=== PATIENT | female | born 1940 | race Caucasian/White ===

== ENCOUNTER 2016-12-01 17:25 | Emergency (ER) | payer MEDICARE, MEDICAID ==
[2016-12-01 18:02] LABS: BASO % 0.7 % (0-6); EOS % 2.8 % (0-6); GRAN % 55.6 % (47-80); HEMATOCRIT 40.9 % (35.0-47.0); HEMOGLOBIN 14.2 gm/dl (11.6-16.0); LYMPH % 31.2 % (16-45); MEAN CELL VOLUME 91.7 fl (81-97); MEAN CORPUSCULAR HEMOGLOBIN 31.8 pg (27-33); MEAN CORPUSCULAR HGB CONC 34.7 g/dl (32-36); MEAN PLATELET VOLUME 9.8 fl (7.4-10.4); MONO % 9.7 % (0-9); PLATELET COUNT 255 K/uL (130-400); RED BLOOD COUNT 4.46 M/uL (3.80-5.40); RED CELL DISTRIBUTION WIDTH 12.3 % (11.5-14.5); WHITE BLOOD COUNT W/O DIFF 7.1 K/uL (4.2-12.2)
[2016-12-01 18:14] LABS: ANION GAP 13.5 (7-16); BLOOD UREA NITROGEN 18 mg/dL (7-17); CARBON DIOXIDE 25.5 mmol/L (22-30); CREATININE 0.7 mg/dL (0.52-1.04); EST GLOMERULAR FILTRATION RATE > 60 ml/min; GLUCOSE,RANDOM 96 mg/dL (70-110)
--- NOTE | 2016-12-01 18:20 | Emergency Department Record ---
History of Present Illness - General Chief Complaint: Hypertension Stated Complaint: HYPERTENTION Time Seen by Provider: 12/01/16 18:15 Source: Patient Mode of Arrival: Ambulatory Limitations: No limitations - History of Present Illness Initial Comments: pt was home when a friend checked her bp and found it to be 155/105. they became alarmed at this high presure, they tell me, and called her drs office. her doctors office told her to go to the er. she said also she then became light headed and thought she was going to pass out. she said she has been in chronic pain for a year. she was also concerned that her hr was 61. MD Complaint: Dizziness, Lightheadedness Onset/Timin -: Hour(s) Timing: Gradual onset Description: Lightheadedness History of Same: Yes History of Trauma: No Improves With: Nothing - Caty Coma Scale Eye Response: (4) Open spontaneously Motor Response: (6) Obeys commands Verbal Response: (5) Oriented Caty Total: 15 - Symptoms of Stroke Onset of Symptoms Date: 12/01/16 Onset of Symptoms Time: 10:00 - Related Data Home Medications Medication Instructions Recorded Confirmed Last Taken Aspirin [Aspirin EC] 81 mg PO DAILY 08/27/14 12/01/16 1 Day Ago Metoprolol/Hydrochlorothiazide 1 each PO DAILY 08/27/14 12/01/16 1 Day Ago [Metoprolol-Hctz 100-50 mg Tab] Multivitamin [Multi-Vitamin Daily] 1 tab PO DAILY 08/27/14 12/01/16 1 Day Ago Naproxen [Naprosyn] 500 mg PO BID 09/25/16 12/01/16 1 Day Ago Omeprazole [Prilosec] 20 mg PO DAILY 12/01/16 12/01/16 1 Day Ago Allergies Allergy/AdvReac Type Severity Reaction Status Date / Time tramadol Allergy Severe ITCHING Verified 12/01/16 17:35 amoxicillin trihydrate Allergy Unknown PT UNSURE Verified 12/01/16 17:35 [From AMOXIL] OF REACTION azithromycin [From ZITHROMAX] Allergy Unknown PT UNSURE Verified 12/01/16 17:35 OF REACTION ciprofloxacin [From CIPRO] Allergy Unknown PT UNSURE Verified 12/01/16 17:35 OF REACTION ciprofloxacin HCl Allergy Unknown PT UNSURE Verified 12/01/16 17:35 [From CIPRO] OF REACTION clarithromycin Allergy Unknown PT UNSURE Verified 12/01/16 17:35 [CLARITHROMYCIN] OF REACTION codeine [CODEINE] Allergy Unknown PT UNSURE Verified 12/01/16 17:35 OF REACTION prednisone [PREDNISONE] Allergy Unknown PT Verified 12/01/16 17:35 ALLERGIC TO STEROIDS Sulfa (Sulfonamide Allergy Unknown ANAPHYLAXIS Verified 12/01/16 17:35 Antibiotics) Travel Screening - Travel/Exposure Within Last 30 Days Have you traveled within the last 30 days?: No - Travel/Exposure Within Last Year Have you traveled outside the [place] in the last year?: No - Additonal Travel Details Have you been exposed to anyone with a communicable illness?: No - Travel Symptoms Symptom Screening: None Review of Systems Reviewed: No additional complaints except as noted below Constitutional: Reports: As per HPI. Denies: Chills, Fever, Malaise, Night sweats, Weakness, Weight change Eyes: Reports: As per HPI. Denies: Eye discharge, Eye pain, Photophobia, Vision change ENT: Reports: As per HPI. Denies: Congestion, Dental pain, Ear pain, Epistaxis , Hearing loss, Throat pain Respiratory: Reports: As per HPI. Denies: Cough, Dyspnea, Hemoptysis, Stridor, Wheezes Cardiovascular: Reports: As per HPI. Denies: Arrhythmia, Chest pain, Dyspnea on exertion, Edema, Murmurs, Orthopnea, Palpitations, Paroxysmal nocturnal dyspnea, Rheumatic Fever, Syncope Endocrine: Reports: As per HPI. Denies: Fatigue, Heat or cold intolerance, Polydipsia, Polyuria Gastrointestinal: Reports: As per HPI. Denies: Abdominal pain, Constipation, Diarrhea, Hematemesis, Hematochezia, Melena, Nausea, Vomiting Genitourinary: Reports: As per HPI. Denies: Abnormal menses, Discharge, Dyspareunia, Dysuria, Frequency, Hematuria, Incontinence, Retention, Urgency Musculoskeletal: Reports: As per HPI. Denies: Arthralgia, Back pain, Gout, Joint swelling, Myalgia, Neck pain Skin: Reports: As per HPI. Denies: Bruising, Change in color, Change in hair/ nails, Lesions, Pruritus, Rash Neurological: Reports: As per HPI. Denies: Abnormal gait, Confusion, Headache, Numbness, Paresthesias, Seizure, Tingling, Tremors, Vertigo, Weakness Psychiatric: Reports: As per HPI. Denies: Anxiety, Auditory hallucinations, Depression, Homicidal thoughts, Suicidal thoughts, Visual hallucinations Hematological/Lymphatic: Reports: As per HPI. Denies: Anemia, Blood Clots, Easy bleeding, Easy bruising, Swollen glands Past Medical History - SOCIAL HISTORY Smoking Status: Former smoker Alcohol Use: None Drug Use: None - RESPIRATORY Hx Respiratory Disorders: Yes Hx Pneumonia: Yes - CARDIOVASCULAR Hx Cardio Disorders: Yes Hx Heart Attack: Yes Hx Hypertension: Yes - NEURO Hx Neuro Disorders: Yes Hx CVA: Yes Hx TIA: Yes - GI Hx GI Disorders: Yes Hx Reflux: Yes (was on nexium) - Hx Genitourinary Disorders: No - ENDOCRINE Hx Endocrine Disorders: No Hx Diabetes: No Hx Thyroid Disease: No - MUSCULOSKELETAL Hx Musculoskeletal Disorders: Yes Hx Arthritis: Yes Hx Osteoporosis: Yes - PSYCH Hx Psych Problems: No - HEMATOLOGY/ONCOLOGY Hx Hematology/Oncology Disorders: Yes Hx Cancer: Yes (uterine) Family Medical History Any Significant Family History?: Yes Hx Alcohol Use: Father Hx Cancer: Brother/Sister Hx Diabetes: Brother/Sister Hx Heart Disease: Father, Brother/Sister Hx Liver Disease: Father Hx Resp Disorders: Father, Mother, Brother/Sister Physical Exam - General General Appearance: Alert, Oriented x3, Cooperative, Mild distress - Head Head exam: Normal inspection - Eye Eye exam: Normal appearance, PERRL, EOMI Pupils: Normal accommodation - ENT ENT exam: Normal exam, Mucous membranes moist, Normal external ear exam, Normal orophraynx Ear exam: Normal external inspection. negative: External canal tenderness Nasal Exam: Normal inspection. negative: Discharge, Sinus tenderness Mouth exam: Normal external inspection, Tongue normal Teeth exam: Normal inspection. negative: Dental caries Throat exam: Normal inspection. negative: Tonsillar erythema, Tonsillar exudate - Neck Neck exam: Normal inspection, Full ROM. negative: Tenderness - Respiratory Respiratory exam: Normal lung sounds bilaterally. negative: Respiratory distress - Cardiovascular Cardiovascular Exam: Regular rate, Normal rhythm, Normal heart sounds - GI/Abdominal GI/Abdominal exam: Soft, Normal bowel sounds. negative: Tenderness - Rectal Rectal exam: Deferred - exam: Deferred - Extremities Extremities exam: Normal inspection, Full ROM, Normal capillary refill. negative: Tenderness - Back Back exam: Reports: Normal inspection, Full ROM. Denies: Muscle spasm, Rash noted, Tenderness - Neurological Neurological exam: Alert, CN II-XII intact, Normal gait, Oriented X3 - Psychiatric Psychiatric exam: Normal affect, Normal mood - Skin Skin exam: Dry, Intact, Normal color, Warm Course Vital Signs 12/01/16 17:27 Temperature 98.3 F Pulse Rate 60 Respiratory 18 Rate Blood Pressure 167/95 Pulse Ox 16 L Medical Decision Making - Management Options MDM Management: Additional Work-up Planned (e.g. ADM/Transfer/OP Study) - Data Complexity MDM Data: Labs Ordered and/or Reviewed, X-Ray Ordered and/or Reviewed, EKG Ordered and/or Reviewed - Lab Data Result diagrams: 12/01/16 17:50 12/01/16 17:50 Lab Results 12/01/16 12/01/16 Range/Units 17:50 17:50 WBC 7.1 (4.2-12.2) K/uL RBC 4.46 (3.80-5.40) M/uL Hgb 14.2 (11.6-16.0) gm/dl Hct 40.9 (35.0-47.0) % MCV 91.7 (81-97) fl MCH 31.8 (27-33) pg MCHC 34.7 (32-36) g/dl RDW 12.3 (11.5-14.5) % Plt Count 255 (130-400) K/uL MPV 9.8 (7.4-10.4) fl Gran % 55.6 (47-80) % Lymphocytes % 31.2 (16-45) % Monocytes % 9.7 H (0-9) % Eosinophils % 2.8 (0-6) % Basophils % 0.7 (0-6) % Sodium 140 (136-145) mmol/L Potassium 3.9 (3.5-5.1) mmol/L Chloride 101 (98-107) mmol/L Carbon Dioxide 25.5 (22-30) mmol/L Anion Gap 13.5 (7-16) BUN 18 H (7-17) mg/dL Creatinine 0.7 (0.52-1.04) mg/dL Estimated GFR > 60 ml/min Random Glucose 96 (70-110) mg/dL Calcium 8.9 (8.5-10.1) mg/dL - EKG Data -: EKG Interpreted by Me EKG: Abnormal EKG (nonspecific t wave inversions) - Radiology Data Radiology results: Report reviewed, Image reviewed Disposition Disposition: Discharge Clinical Impression: Hypertension Qualifiers: Hypertension type: essential hypertension Qualified Code(s): I10 - Essential ( primary) hypertension Disposition: Home, Self-Care Instructions: Hypertension (ED) Additional Instructions: recheck blood pressure tomorrow. return sooner if worse. follow up with family doctor. push fluids Forms: Patient Portal Access
== END 2016-12-01 20:07 | disposition home or self-care (01) ==
LOC: ER 17:25
DX: I10 Essential (primary) hypertension (principal); R42 Dizziness and giddiness; I25.2 Old myocardial infarction; Z87.891 Personal history of nicotine dependence
CPT/HCPCS: 80048; 84484; 85025; 93005; 93010; 99284

== ENCOUNTER 2017-02-23 18:11 | Emergency (ER) | payer MEDICARE, MEDICAID ==
--- NOTE | 2017-02-23 18:40 | Emergency Department Record ---
History of Present Illness - General Stated complaint: DIARRHEA/NAUSEATED Time Seen by Provider: 02/23/17 18:30 Source: Patient Mode of Arrival: Ambulatory Limitations: No limitations - History of Present Illness Initial comments: 76 yo female presents to ED with a CC of nausea, abdominal pain symptoms, and loose stools for nearly 1 week. Patient reports that she started Zithromax just prior to her symptoms beginning. Patient denies fevers, chills, vomiting, or urinary symptoms. Patient denies health problems other than HTN and previous MN, denies the use of anticoagulation medications. MD complaint: Diarrhea Onset/Timin -: Days(s) Description of Vomiting: Watery Associated Abdominal Pain: Yes Location: Epigastric Radiation: None Severity: Moderate Consistency: Intermittent Improves with: None Worsens with: Eating Context: Recent anitbiotic use Associated Symptoms: Nausea/vomiting - Related Data Home Medications Medication Instructions Recorded Confirmed Last Taken Aspirin [Aspirin EC] 81 mg PO DAILY 08/27/14 02/23/17 1 Day Ago ~02/22/17 Multivitamin [Multi-Vitamin Daily] 1 tab PO DAILY 08/27/14 02/23/17 1 Day Ago ~02/22/17 Naproxen [Naprosyn] 500 mg PO BID 09/25/16 02/23/17 1 Day Ago ~02/22/17 Omeprazole [Prilosec] 20 mg PO DAILY 12/01/16 02/23/17 1 Day Ago ~02/22/17 Azithromycin [Zithromax] 250 mg PO DAILY 02/23/17 02/23/17 1 Day Ago ~02/22/17 Lisinopril [Lisinopril] 20 mg PO DAILY 02/23/17 02/23/17 1 Day Ago ~02/22/17 Metoprolol Tartrate 100 mg PO DAILY 02/23/17 02/23/17 1 Day Ago ~02/22/17 Previous Rx's Medication Instructions Recorded Loperamide HCl [Immodium] 2 mg PO Q4H #15 capsule 02/23/17 Ondansetron [Zofran Odt] 4 mg PO Q6H PRN #20 tab.rapdis 02/23/17 Allergies Allergy/AdvReac Type Severity Reaction Status Date / Time tramadol Allergy Severe ITCHING Verified 12/27/16 10:12 amoxicillin trihydrate Allergy Unknown PT UNSURE Verified 12/27/16 10:12 [From AMOXIL] OF REACTION azithromycin [From ZITHROMAX] Allergy Unknown PT UNSURE Verified 12/27/16 10:12 OF REACTION ciprofloxacin [From CIPRO] Allergy Unknown PT UNSURE Verified 12/27/16 10:12 OF REACTION ciprofloxacin HCl Allergy Unknown PT UNSURE Verified 12/27/16 10:12 [From CIPRO] OF REACTION clarithromycin Allergy Unknown PT UNSURE Verified 12/27/16 10:12 [CLARITHROMYCIN] OF REACTION codeine [CODEINE] Allergy Unknown PT UNSURE Verified 12/27/16 10:12 OF REACTION prednisone [PREDNISONE] Allergy Unknown PT Verified 12/27/16 10:12 ALLERGIC TO STEROIDS Sulfa (Sulfonamide Allergy Unknown ANAPHYLAXIS Verified 12/27/16 10:12 Antibiotics) Review of Systems Constitutional: Denies: Chills, Fever, Malaise, Night sweats Eyes: Denies: Eye discharge, Eye pain ENT: Denies: Congestion, Ear pain, Epistaxis Respiratory: Denies: Cough, Stridor, Wheezes Cardiovascular: Denies: Chest pain, Dyspnea on exertion, Paroxysmal nocturnal dyspnea Endocrine: Denies: Fatigue, Heat or cold intolerance Gastrointestinal: Reports: Abdominal pain, Diarrhea, Nausea. Denies: Constipation, Vomiting Genitourinary: Denies: Frequency, Hematuria, Incontinence, Retention Musculoskeletal: Denies: Arthralgia, Back pain, Gout, Joint swelling Skin: Denies: Bruising, Change in color Neurological: Denies: Abnormal gait, Confusion, Headache, Seizure Psychiatric: Denies: Anxiety Hematological/Lymphatic: Denies: Anemia, Blood Clots Past Medical History - SOCIAL HISTORY Smoking Status: Former smoker Drug Use: None - RESPIRATORY Hx Respiratory Disorders: Yes Hx Pneumonia: Yes - CARDIOVASCULAR Hx Cardio Disorders: Yes Hx Heart Attack: Yes Hx Hypertension: Yes - NEURO Hx Neuro Disorders: Yes Hx CVA: Yes Hx Headaches: Yes Hx TIA: Yes - GI Hx GI Disorders: Yes Hx Reflux: Yes (was on nexium) - Hx Genitourinary Disorders: No - ENDOCRINE Hx Endocrine Disorders: No Hx Diabetes: No Hx Thyroid Disease: No - MUSCULOSKELETAL Hx Musculoskeletal Disorders: Yes Hx Arthritis: Yes Hx Osteoporosis: Yes - PSYCH Hx Psych Problems: No - HEMATOLOGY/ONCOLOGY Hx Hematology/Oncology Disorders: Yes Hx Cancer: Yes (uterine) Family Medical History Hx Alcohol Use: Father Hx Cancer: Brother/Sister Hx Diabetes: Brother/Sister Hx Heart Disease: Father, Brother/Sister Hx Liver Disease: Father Hx Resp Disorders: Father, Mother, Brother/Sister Physical Exam - General General Appearance: Alert, Oriented x3, Cooperative, Mild distress Limitations: No limitations - Head Head exam: Atraumatic, Normocephalic, Normal inspection Head exam detail: negative: Abrasion, Contusion, Gonzalez's sign, General tenderness, Hematoma, Laceration - Eye Eye exam: Normal appearance. negative: Conjunctival injection, Periorbital swelling, Periorbital tenderness, Scleral icterus - ENT Ear exam: negative: Auricular hematoma, Auricular trauma Nasal Exam: negative: Active bleeding, Discharge, Dried blood, Foreign body Mouth exam: negative: Drooling, Laceration, Muffled voice, Tongue elevation - Neck Neck exam: Normal inspection. negative: Meningismus, Tenderness - Respiratory Respiratory exam: Normal lung sounds bilaterally. negative: Respiratory distress, Rhonchi, Stridor, Wheezes - Cardiovascular Cardiovascular Exam: Regular rate, Normal rhythm, Normal heart sounds - GI/Abdominal GI/Abdominal exam: Soft, Tenderness (Very mild TTP epigastric region, no rebound , guarding, or peritoneal signs on exam). negative: Organomegaly, Pulsatile mass, Rebound, Rigid - Rectal Rectal exam: Deferred - exam: Deferred - Extremities Extremities exam: Normal inspection. negative: Calf tenderness, Pedal edema, Tenderness - Back Back exam: Denies: CVA tenderness (R), CVA tenderness (L) - Neurological Neurological exam: Alert, Normal gait, Oriented X3 - Psychiatric Psychiatric exam: Normal affect, Normal mood - Skin Skin exam: Normal color. negative: Abrasion Type of lesion: negative: abrasion Course - Reevaluation(s) Reevaluation #1: 02/23/17 20:16 Labs reviewed and are grossly unremarkable for an acute process. Patient reassessed, has given stool sample, and denies any abdominal pain at this time. Nausea is reported to be improved. No CT imaging is felt to be necessary at this time. Will continue to monitor pending C. Diff/Roto results. Reevaluation #2: 02/23/17 21:16 C. Diff and Rotovirus are reported as negative. Patient was updated on all results, reports that she is feeling much better, and appears stable for discharge at this time with a return for any worsening of her symptoms. Medical Decision Making - Lab Data Result diagrams: 02/23/17 18:55 02/23/17 18:55 Disposition Disposition: Discharge Clinical Impression: Diarrhea Qualifiers: Diarrhea type: unspecified type Qualified Code(s): R19.7 - Diarrhea, unspecified Disposition: Home, Self-Care Condition: (2) Stable Instructions: Acute Diarrhea (ED) Additional Instructions: Return to ED if your symptoms worsen or if you have any concerns. Immodium and Zofran as directed. Follow-up with your family doctor in 1-3 days as directed. Prescriptions: Loperamide HCl [Immodium] 2 mg PO Q4H #15 capsule Ondansetron [Zofran Odt] 4 mg PO Q6H PRN #20 tab.rapdis PRN Reason: Nausea/Vomiting Time of Disposition: 21:21
[2017-02-23] MEDS ORDERED: ONDANSETRON HCL IV 4 MG/2 ML VIAL IVP ONE (18:43)
[2017-02-23] MEDS ORDERED: 0.9 % SODIUM CHLORIDE 1000ML 1,000 ML IV SCH (18:45)
[2017-02-23 18:59] LABS: URINE APPEARANCE CLEAR; URINE BILIRUBIN NEGATIVE (NEGATIVE); URINE BLOOD TRACE-I (NEGATIVE); URINE COLOR YELLOW; URINE GLUCOSE (UA) NEGATIVE (NEGATIVE); URINE KETONE NEGATIVE (NEGATIVE); URINE NITRITE NEGATIVE (NEGATIVE); URINE PROTEIN NEGATIVE (NEGATIVE); URINE UROBILINOGEN 0.2 E.U./dL (0.20 - 1.00)
[2017-02-23 19:09] LABS: BASO % 0.4 % (0-6); EOS % 4.1 % (0-6); GRAN % 48.7 % (47-80); HEMATOCRIT 42.5 % (35.0-47.0); HEMOGLOBIN 14.7 gm/dl (11.6-16.0); MEAN CELL VOLUME 91.8 fl (81-97); MEAN CORPUSCULAR HEMOGLOBIN 31.7 pg (27-33); MEAN CORPUSCULAR HGB CONC 34.6 g/dl (32-36); MEAN PLATELET VOLUME 9.7 fl (7.4-10.4); MONO % 12.8 % (0-9); PLATELET COUNT 256 K/uL (130-400); RED BLOOD COUNT 4.63 M/uL (3.80-5.40); RED CELL DISTRIBUTION WIDTH 12.4 % (11.5-14.5); WHITE BLOOD COUNT W/O DIFF 5.1 K/uL (4.2-12.2)
[2017-02-23 19:13] LABS: URINE LEUKOCYTE ESTERASE TRACE (NEGATIVE)
[2017-02-23 19:14] LABS: URINE BACTERIA FEW
[2017-02-23 19:19] LABS: ALB/GLOB RATIO 1.3 (1.1-1.8); ALBUMIN 4.3 gm/dL (3.5-5.0); ALKALINE PHOSPHATASE 100 U/L (38-126); ALT/SGPT 38 U/L (9-52); AST/SGOT 41 U/L (14-36); BILIRUBIN,TOTAL 0.48 mg/dL (0.2-1.3); BLOOD UREA NITROGEN 13 mg/dL (7-17); CREATININE 0.6 mg/dL (0.52-1.04); EST GLOMERULAR FILTRATION RATE > 60 ml/min; GLUCOSE,RANDOM 108 mg/dL (70-110); LIPASE 29 U/L (23-300); TOTAL PROTEIN 7.5 gm/dL (6.3-8.2)
[2017-02-23 20:27] LABS: ROTOVIRUS NOT DETECTED (NOT DETECT)
[2017-02-23 21:06] LABS: MOLECULAR C DIFF TOXIN SCREEN NOT DETECTED
[2017-02-23] MEDS ORDERED: LOPERAMIDE 2 MG CAPSULE PO ONE (21:21)
[2017-02-23] MEDS ORDERED: ONDANSETRON 4 MG ODT TABLET SL ONE (21:21)
== END 2017-02-23 21:43 | disposition home or self-care (01) ==
LOC: ER 18:11
DX: R19.7 Diarrhea, unspecified (principal); R11.2 Nausea with vomiting, unspecified; R10.13 Epigastric pain; F17.210 Nicotine dependence, cigarettes, uncomplicated; I10 Essential (primary) hypertension; I25.2 Old myocardial infarction
CPT/HCPCS: 99284 ×2; 96374; 83690; 85025; 80053; 81001; 87425; 87493; J2405; J7030

== ENCOUNTER 2017-06-29 10:24 | Emergency (ER) | payer MEDICARE, MEDICAID ==
--- NOTE | 2017-06-29 10:56 | Emergency Department Record ---
History of Present Illness - General Stated Complaint: WEAK Time Seen by Provider: 06/29/17 10:50 Source: Patient Mode of Arrival: Ambulatory Limitations: No limitations - History of Present Illness Initial Comments: 76 yo female presents with several recent concerns. This morning she ate breakfast that included oatmeal and toast. While eating she developed an abdominal pain that she states was a tightness across the upper abdomen. She felt weak and nauseated. She sat on the toilet and had a bowel movement. This relieved some of the discomfort. She noted that her bilateral palms were red and warm. She did not vomiting. She has been having upper abdominal pain for several weeks. She reports a fullness feeling in the upper abdomen. She had CT scan with her PCP last Wednesday. She also notes chest pain on a few occasions over the last 4 months. The pain is brief never lasting long than a minute. It occurs at rest and not with activity or exertion. She did have a heart attach in her early 50's. She does not see a manager leasing. Her last CP was yesterday again non exertioal and lasting less that a minute. MD Complaint: Abdominal pain -: Hour(s) Location: Epigastric Radiation: Epigastric Migration to: Epigastric Severity: Moderate Quality: Fullness - Related Data Home Medications Medication Instructions Recorded Confirmed Last Taken Ibuprofen 800 mg PO TID 06/29/17 06/29/17 06/28/17 Lisinopril/Hydrochlorothiazide 1 each PO DAILY 06/29/17 06/29/17 06/29/17 [Lisinopril-Hctz 20-12.5 mg Tab] Previous Rx's Medication Instructions Recorded Nitrofurantoin Monohyd/M-Cryst 100 mg PO BID #14 capsule 06/29/17 [Macrobid 100 mg Capsule] Pantoprazole Sodium [Protonix] 40 mg PO DAILY #30 tablet. 06/29/17 Allergies Allergy/AdvReac Type Severity Reaction Status Date / Time tramadol Allergy Severe ITCHING Verified 12/27/16 10:12 amoxicillin trihydrate Allergy Unknown PT UNSURE Verified 12/27/16 10:12 [From AMOXIL] OF REACTION azithromycin [From ZITHROMAX] Allergy Unknown PT UNSURE Verified 12/27/16 10:12 OF REACTION ciprofloxacin [From CIPRO] Allergy Unknown PT UNSURE Verified 12/27/16 10:12 OF REACTION ciprofloxacin HCl Allergy Unknown PT UNSURE Verified 12/27/16 10:12 [From CIPRO] OF REACTION clarithromycin Allergy Unknown PT UNSURE Verified 12/27/16 10:12 [CLARITHROMYCIN] OF REACTION codeine [CODEINE] Allergy Unknown PT UNSURE Verified 12/27/16 10:12 OF REACTION prednisone [PREDNISONE] Allergy Unknown PT Verified 12/27/16 10:12 ALLERGIC TO STEROIDS Sulfa (Sulfonamide Allergy Unknown ANAPHYLAXIS Verified 12/27/16 10:12 Antibiotics) Review of Systems Constitutional: Reports: Weakness. Denies: Chills, Fever, Malaise Eyes: Denies: Eye discharge, Eye pain ENT: Denies: Congestion, Throat pain Respiratory: Reports: Dyspnea (chronic and unchanged). Denies: Cough, Hemoptysis, Stridor, Wheezes Cardiovascular: Reports: As per HPI, Chest pain (a few episodes over the last 4 weeks, lasting less than one minute, non exertional ), Dyspnea on exertion ( chronic and unchanged). Denies: Edema, Palpitations, Syncope Endocrine: Denies: Fatigue, Polydipsia, Polyuria Gastrointestinal: Reports: As per HPI, Abdominal pain, Nausea. Denies: Diarrhea , Hematemesis, Vomiting Genitourinary: Denies: Dysuria, Urgency Musculoskeletal: Reports: Arthralgia (chronic), Back pain (chronic). Denies: Myalgia, Neck pain Skin: Denies: Bruising, Change in color, Rash Neurological: Denies: Headache, Numbness, Weakness Psychiatric: Denies: Anxiety Hematological/Lymphatic: Denies: Blood Clots, Easy bleeding, Easy bruising, Swollen glands Past Medical History - SOCIAL HISTORY Smoking Status: Former smoker Drug Use: None - RESPIRATORY Hx Respiratory Disorders: Yes Hx Pneumonia: Yes - CARDIOVASCULAR Hx Cardio Disorders: Yes Hx Heart Attack: Yes Hx Hypertension: Yes - NEURO Hx Neuro Disorders: Yes Hx CVA: Yes Hx Headaches: Yes Hx TIA: Yes - GI Hx GI Disorders: Yes Hx Reflux: Yes (was on nexium) - Hx Genitourinary Disorders: No - ENDOCRINE Hx Endocrine Disorders: No Hx Diabetes: No Hx Thyroid Disease: No - MUSCULOSKELETAL Hx Musculoskeletal Disorders: Yes Hx Arthritis: Yes Hx Osteoporosis: Yes - PSYCH Hx Psych Problems: No - HEMATOLOGY/ONCOLOGY Hx Hematology/Oncology Disorders: Yes Hx Cancer: Yes (uterine) Family Medical History Hx Alcohol Use: Father Hx Cancer: Brother/Sister Hx Diabetes: Brother/Sister Hx Heart Disease: Father, Brother/Sister Hx Liver Disease: Father Hx Resp Disorders: Father, Mother, Brother/Sister Physical Exam - General General Appearance: Alert, Oriented x3, Cooperative, No acute distress Limitations: No limitations - Head Head exam: Normal inspection - Eye Eye exam: Normal appearance, PERRL. negative: Conjunctival injection, Periorbital swelling - ENT ENT exam: Normal exam, Mucous membranes moist, Normal orophraynx Ear exam: Normal external inspection Nasal Exam: Normal inspection Mouth exam: Normal external inspection - Neck Neck exam: Normal inspection, Full ROM. negative: Tenderness - Respiratory Respiratory exam: Normal lung sounds bilaterally. negative: Chest wall tenderness, Respiratory distress, Rhonchi, Stridor - Cardiovascular Cardiovascular Exam: Regular rate, Normal rhythm, Normal heart sounds Peripheral Pulses: 2+: Radial (R), Radial (L) - GI/Abdominal GI/Abdominal exam: Soft, Tenderness (tender but soft n the epigastric area, ). negative: Diminished bowel sounds, Distended, Guarding, Hernia, Pulsatile mass, Rebound, Rigid - Rectal Rectal exam: Deferred - exam: Deferred - Extremities Extremities exam: Normal inspection, Full ROM, Normal capillary refill. negative: Tenderness - Back Back exam: Reports: Normal inspection, Full ROM. Denies: Muscle spasm, Rash noted, Tenderness - Neurological Neurological exam: Alert, Normal gait, Oriented X3. negative: Altered - Psychiatric Psychiatric exam: Normal affect, Normal mood - Skin Skin exam: Dry, Intact, Normal color, Warm Course - Reevaluation(s) Reevaluation #1: EKG 06/29/2017 NSR, rate 62, intervals normal, axis normal, ST Inverted T waves V1-3 also noted on 08/27/14 EKG without changes. 06/29/17 11:09 Reevaluation #2: The CT scan from 06/25/17 was resulted. No acute process of the abdomen, thickening of the duodenum peristalsis vs duodenitis, diverticulosis without diverticulitis. 06/29/17 11:47 The UA is CW UTI She will be provided a dose of antibiotics in the ED No other acute changes on the labs and CT I offered a same day cardiology referral for her very atypical chest pain. She declined and will make an appointment when contacted by the specialty clinic. She will be changed to Protonix and her Motrin will be stopped as this could be causing her epigastric pain. She was referred to GI at [facility]. 06/29/17 12:23 Medical Decision Making - Lab Data Result diagrams: 06/29/17 11:15 06/29/17 11:15 Disposition Disposition: Discharge Clinical Impression: Epigastric pain, Atypical chest pain Urinary tract infection Qualifiers: Urinary tract infection type: acute cystitis Hematuria presence: without hematuria Qualified Code(s): N30.00 - Acute cystitis without hematuria Disposition: Home, Self-Care Condition: (1) Good Instructions: Gastritis (ED), Urinary Tract Infection in Women (ED) Additional Instructions: Call your doctor today for close follow up You are being referred to the [facility] for GI and Cardiology Avoid Motrin, Naprosyn and other anti-inflammatory medications Prescriptions: Nitrofurantoin Monohyd/M-Cryst [Macrobid 100 mg Capsule] 100 mg PO BID #14 capsule Pantoprazole Sodium [Protonix] 40 mg PO DAILY #30 tablet.dr Referrals: [facility] [Provider Group] BHARATH GODWIN M.D. [MEDICAL DOCTOR] - BRENDAN QUIROZ [MEDICAL DOCTOR] - Forms: Patient Portal Access Time of Disposition: 12:23 Quality - Quality Measures Quality Measures: N/A - Blood Pressure Screening Does Patient Have Any of the Following: No Blood Pressure Classification: Pre-Hypertensive BP Reading Systolic Measurement: 138 Diastolic Measurement: 62 Screening for High Blood Pressure: < Pre-Hypertensive BP, F/U Documented > [ [id number]] Pre-Hypertensive Follow-up Interventions: Referral to alternative/primary care provider.
[2017-06-29 11:22] LABS: BASO % 0.4 % (0-6); EOS % 1.5 % (0-6); GRAN % 77.9 % (47-80); LYMPH % 11.9 % (16-45); MEAN CELL VOLUME 90.7 fl (81-97); MEAN CORPUSCULAR HEMOGLOBIN 32.7 pg (27-33); MEAN CORPUSCULAR HGB CONC 36.1 g/dl (32-36); MEAN PLATELET VOLUME 9.2 fl (7.4-10.4); MONO % 8.3 % (0-9); PLATELET COUNT 259 K/uL (130-400); RED BLOOD COUNT 3.97 M/uL (3.80-5.40); WHITE BLOOD COUNT W/O DIFF 10.6 K/uL (4.2-12.2)
[2017-06-29 11:51] LABS: ALB/GLOB RATIO 1.3 (1.1-1.8); ALBUMIN 3.9 g/dL (4.0-5.0); ALKALINE PHOSPHATASE 90 U/L (35-104); ALT/SGPT 17 U/L (<33); AST/SGOT 18 U/L (10.0-35.0); CREATININE 0.6 mg/dL (0.5-0.9); EST GLOMERULAR FILTRATION RATE > 60 mL/min; GLUCOSE,RANDOM 114 mg/dL (74-109); LIPASE 15 U/L (13-60); TOTAL PROTEIN 6.9 g/dL (6.6-8.7)
[2017-06-29] MEDS ORDERED: MAGNESIUM HYDROXIDE/AL HYDROX 30 ML, LIDOCAINE VISC 2% 200 MG PO ONE ×2 (11:56)
[2017-06-29 11:57] LABS: URINE APPEARANCE SL CLOUDY; URINE BILIRUBIN NEGATIVE (NEGATIVE); URINE BLOOD MODERATE (NEGATIVE); URINE COLOR YELLOW; URINE GLUCOSE (UA) NEGATIVE (NEGATIVE); URINE KETONE NEGATIVE (NEGATIVE); URINE LEUKOCYTE ESTERASE LARGE (NEGATIVE); URINE NITRITE NEGATIVE (NEGATIVE); URINE PROTEIN NEGATIVE (NEGATIVE); URINE UROBILINOGEN 0.2 E.U./dL (0.20 - 1.00)
[2017-06-29 12:03] LABS: URINE BACTERIA 1+; URINE EPITHELIAL CELLS 0 - 2 (FEW); URINE WBC >50 (0-2/hpf)
[2017-06-29 12:15] LABS: TROPONIN I < 0.01 ng/mL (0.00-0.300)
[2017-06-29] MEDS ORDERED: NITROFURANTOIN MONO 100 MG CAPSULE PO ONE (12:21)
[2017-06-29 19:37] LABS: BLOOD UREA NITROGEN 29.7 mg/dL (8-23)
== END 2017-06-29 12:38 | disposition home or self-care (01) ==
LOC: ER 10:24
DX: R10.31 Right lower quadrant pain (principal); N30.00 Acute cystitis without hematuria; R11.0 Nausea; R07.89 Other chest pain; R53.1 Weakness; I10 Essential (primary) hypertension; I25.2 Old myocardial infarction; Z87.891 Personal history of nicotine dependence
CPT/HCPCS: 80053; 81001; 83690; 84484; 85025; 93005; 93010; 99284

== ENCOUNTER 2017-11-07 10:32 | Emergency (ER) | payer MEDICARE, MEDICAID ==
[2017-11-07] MEDS ORDERED: 0.9 % SODIUM CHLORIDE 1,000 ML BAG IV ONE (11:18)
[2017-11-07 11:46] LABS: HEMATOCRIT 43.1 % (35.0-47.0); HEMOGLOBIN 15.1 gm/dl (11.6-16.0); MEAN CELL VOLUME 92.7 fl (81-97); MEAN CORPUSCULAR HEMOGLOBIN 32.5 pg (27-33); MEAN PLATELET VOLUME 9.3 fl (7.4-10.4); PLATELET COUNT 300 K/uL (130-400); RED BLOOD COUNT 4.65 M/uL (3.80-5.40); WHITE BLOOD COUNT W/O DIFF 11.6 K/uL (4.2-12.2)
[2017-11-07 12:00] LABS: BLOOD UREA NITROGEN 15 mg/dL (8-23); CREATININE 0.6 mg/dL (0.5-0.9); EST GLOMERULAR FILTRATION RATE > 60 mL/min
[2017-11-07 12:02] LABS: GLUCOSE,RANDOM 131 mg/dL (74-109)
[2017-11-07 12:04] LABS: INFLUENZA A NEGATIVE (NEGATIVE); INFLUENZA B NEGATIVE (NEGATIVE)
[2017-11-07] MEDS ORDERED: ONDANSETRON HCL IV 4 MG/2 ML VIAL IVP ONE (13:27)
--- NOTE | 2017-11-07 13:31 | Emergency Department Record ---
History of Present Illness - General Chief Complaint: Cough Stated Complaint: DIARRHEA/ABDOMINAL PAIN Time Seen by Provider: 11/07/17 11:13 Mode of Arrival: Ambulatory - History of Present Illness Initial Comments: diarrhea started at 1 am today and had 8 stools and crampy abdominal pain and better after each diarrhea. No vomiting but nausea. patient also has chronic right hip pain and uses tylenol for that. Onset/Timin -: Days(s) Severity: Moderate Severity scale (1-10): 6 Consistency: Constant - Related Data Allergies Allergy/AdvReac Type Severity Reaction Status Date / Time tramadol Allergy Severe ITCHING Verified 12/27/16 10:12 amoxicillin trihydrate Allergy Unknown PT UNSURE Verified 12/27/16 10:12 [From AMOXIL] OF REACTION azithromycin [From ZITHROMAX] Allergy Unknown PT UNSURE Verified 12/27/16 10:12 OF REACTION ciprofloxacin [From CIPRO] Allergy Unknown PT UNSURE Verified 12/27/16 10:12 OF REACTION ciprofloxacin HCl Allergy Unknown PT UNSURE Verified 12/27/16 10:12 [From CIPRO] OF REACTION clarithromycin Allergy Unknown PT UNSURE Verified 12/27/16 10:12 [CLARITHROMYCIN] OF REACTION codeine [CODEINE] Allergy Unknown PT UNSURE Verified 12/27/16 10:12 OF REACTION prednisone [PREDNISONE] Allergy Unknown PT Verified 12/27/16 10:12 ALLERGIC TO STEROIDS Sulfa (Sulfonamide Allergy Unknown ANAPHYLAXIS Verified 12/27/16 10:12 Antibiotics) Travel Screening - Travel/Exposure Within Last 30 Days Have you traveled within the last 30 days?: No - Travel/Exposure Within Last Year Have you traveled outside the [place] in the last year?: No - Additonal Travel Details Have you been exposed to anyone with a communicable illness?: No - Travel Symptoms Symptom Screening: None Review of Systems Reviewed: No additional complaints except as noted below Constitutional: Reports: As per HPI. Denies: Chills, Fever, Malaise, Night sweats, Weakness, Weight change Eyes: Reports: As per HPI. Denies: Eye discharge, Eye pain, Photophobia, Vision change ENT: Reports: As per HPI. Denies: Congestion, Dental pain, Ear pain, Epistaxis , Hearing loss, Throat pain Respiratory: Reports: As per HPI. Denies: Cough, Dyspnea, Hemoptysis, Stridor, Wheezes Cardiovascular: Reports: As per HPI. Denies: Arrhythmia, Chest pain, Dyspnea on exertion, Edema, Murmurs, Orthopnea, Palpitations, Paroxysmal nocturnal dyspnea, Rheumatic Fever, Syncope Endocrine: Reports: As per HPI. Denies: Fatigue, Heat or cold intolerance, Polydipsia, Polyuria Gastrointestinal: Reports: As per HPI, Abdominal pain, Diarrhea, Nausea. Denies : Constipation, Hematemesis, Hematochezia, Melena, Vomiting Genitourinary: Reports: As per HPI. Denies: Abnormal menses, Discharge, Dyspareunia, Dysuria, Frequency, Hematuria, Incontinence, Retention, Urgency Musculoskeletal: Reports: As per HPI. Denies: Arthralgia, Back pain, Gout, Joint swelling, Myalgia, Neck pain Skin: Reports: As per HPI. Denies: Bruising, Change in color, Change in hair/ nails, Lesions, Pruritus, Rash Neurological: Reports: As per HPI. Denies: Abnormal gait, Confusion, Headache, Numbness, Paresthesias, Seizure, Tingling, Tremors, Vertigo, Weakness Psychiatric: Reports: As per HPI. Denies: Anxiety, Auditory hallucinations, Depression, Homicidal thoughts, Suicidal thoughts, Visual hallucinations Hematological/Lymphatic: Reports: As per HPI. Denies: Anemia, Blood Clots, Easy bleeding, Easy bruising, Swollen glands Past Medical History - SOCIAL HISTORY Smoking Status: Former smoker Alcohol Use: None Drug Use: None - RESPIRATORY Hx Respiratory Disorders: Yes Hx Pneumonia: Yes - CARDIOVASCULAR Hx Cardio Disorders: Yes Hx Heart Attack: Yes Hx Hypertension: Yes - NEURO Hx Neuro Disorders: Yes Hx CVA: Yes Hx Headaches: Yes Hx TIA: Yes - GI Hx GI Disorders: Yes Hx Reflux: Yes (was on nexium) - Hx Genitourinary Disorders: No - ENDOCRINE Hx Endocrine Disorders: No Hx Diabetes: No Hx Thyroid Disease: No - MUSCULOSKELETAL Hx Musculoskeletal Disorders: Yes Hx Arthritis: Yes Hx Osteoporosis: Yes - PSYCH Hx Psych Problems: No - HEMATOLOGY/ONCOLOGY Hx Hematology/Oncology Disorders: Yes Hx Cancer: Yes (uterine) Family Medical History Any Significant Family History?: Yes Hx Alcohol Use: Father Hx Cancer: Brother/Sister Hx Diabetes: Brother/Sister Hx Heart Disease: Father, Brother/Sister Hx Liver Disease: Father Hx Resp Disorders: Father, Mother, Brother/Sister Physical Exam - General General Appearance: Alert, Oriented x3, Cooperative, No acute distress - Head Head exam: Normal inspection - Eye Eye exam: Normal appearance, PERRL Pupils: Normal accommodation - ENT ENT exam: Normal exam, Mucous membranes moist, Normal external ear exam, Normal orophraynx, TM's normal bilaterally Ear exam: Normal external inspection. negative: External canal tenderness Nasal Exam: Normal inspection. negative: Discharge, Sinus tenderness Mouth exam: Normal external inspection, Tongue normal Teeth exam: Normal inspection. negative: Dental caries Throat exam: Normal inspection. negative: Tonsillar erythema, Tonsillar exudate - Neck Neck exam: Normal inspection, Full ROM. negative: Tenderness - Respiratory Respiratory exam: Normal lung sounds bilaterally. negative: Respiratory distress - Cardiovascular Cardiovascular Exam: Regular rate, Normal rhythm, Normal heart sounds - GI/Abdominal GI/Abdominal exam: Soft, Normal bowel sounds, Tenderness. negative: Distended, Guarding, Rebound, Rigid - Rectal Rectal exam: Deferred - exam: Deferred - Extremities Extremities exam: Normal inspection, Full ROM, Normal capillary refill. negative: Tenderness - Back Back exam: Reports: Normal inspection, Full ROM. Denies: Muscle spasm, Rash noted, Tenderness - Neurological Neurological exam: Alert, Normal gait, Oriented X3, Reflexes normal - Psychiatric Psychiatric exam: Normal affect, Normal mood - Skin Skin exam: Dry, Intact, Normal color, Warm Course Vital Signs 11/07/17 10:57 Temperature 99.3 F Pulse Rate 95 H Respiratory 16 Rate Blood Pressure 140/90 Pulse Ox 95 Medical Decision Making - Lab Data Result diagrams: 11/07/17 11:30 11/07/17 11:30 Lab Results 11/07/17 11/07/17 11/07/17 Range/Units 11:30 11:30 11:30 WBC 11.6 (4.2-12.2) K/uL RBC 4.65 (3.80-5.40) M/uL Hgb 15.1 (11.6-16.0) gm/dl Hct 43.1 (35.0-47.0) % MCV 92.7 (81-97) fl MCH 32.5 (27-33) pg MCHC 35.0 (32-36) g/dl RDW 12.0 (11.5-14.5) % Plt Count 300 (130-400) K/uL MPV 9.3 (7.4-10.4) fl Neutrophils % 91.0 H (47-80) % Eosinophils % Not Reportable Basophils % Not Reportable Lymphocytes 3.0 L (16-45) % Monocytes 5.0 (0-9) % Eosinophil Count 1.0 (0-6) % Sodium 135 L (136-145) mmol/L Potassium 3.6 (3.4-4.5) mmol/L Chloride 94 L (98-107) mmol/L Carbon Dioxide 27.0 (22-29) mmol/L Anion Gap 14.0 (7-16) BUN 15 (8-23) mg/dL Creatinine 0.6 (0.5-0.9) mg/dL Estimated GFR > 60 mL/min Random Glucose 131 H (74-109) mg/dL Calcium 9.6 (8.8-10.2) mg/dL Influenza Type A Ag Negative (NEGATIVE) Influenza Type B Ag Negative (NEGATIVE) Disposition Clinical Impression: Gastroenteritis Disposition: Home, Self-Care Condition: (1) Good Instructions: Gastroenteritis (ED) Additional Instructions: follow up with Dr. Porter in 3 days Time of Disposition: 13:33 Quality - Quality Measures Quality Measures: N/A - Blood Pressure Screening Does Patient Have Any of the Following: No, Active Dx of HTN Blood Pressure Classification: Hypertensive Reading Systolic Measurement: 140 Diastolic Measurement: 90 Screening for High Blood Pressure: Patient Exclusion, Hx of HTN [G9744]
== END 2017-11-07 13:48 | disposition home or self-care (01) ==
LOC: ER 10:32
DX: K52.9 Noninfective gastroenteritis and colitis, unspecified (principal); I10 Essential (primary) hypertension; I25.2 Old myocardial infarction; Z87.891 Personal history of nicotine dependence
CPT/HCPCS: 80048; 85027; 87400; 96374; 99284; J2405; J7030

== ENCOUNTER 2018-12-10 19:57 | Emergency (ER) | payer MEDICARE, MEDICAID ==
--- NOTE | 2018-12-10 20:10 | Emergency Department Record ---
History of Present Illness - General Chief complaint: Cold Stated complaint: COLD Time Seen by Provider: 12/10/18 20:00 Source: Patient Mode of Arrival: Ambulatory Limitations: No limitations - History of Present Illness Initial comments: 78 yo female presents to ED for evaluation of congestion, runny nose, and sinus drainage for the past several days. Patient reports that she is on day #4 of Zithromax prescribed by her PCP, denies fevers, chills, or productive cough symptoms. Patient denies taking anything for her symptoms other than her prescribed antibiotic. Patient denies health problems "right now". MD complaint: Other Onset/Timin -: Week(s) Severity: Moderate Consistency: Constant Improves with: None Worsens with: None Associated Symptoms: Rhinorrhea, Sore throat - Related Data Previous Rx's Medication Instructions Recorded Loratadine/Pseudoephedrine 1 tab PO DAILY #15 tab.er 12/10/18 [Claritin-D 24 Hour Tablet] Allergies Allergy/AdvReac Type Severity Reaction Status Date / Time tramadol Allergy Severe ITCHING Verified 12/27/16 10:12 amoxicillin trihydrate Allergy Unknown PT UNSURE Verified 12/27/16 10:12 [From AMOXIL] OF REACTION azithromycin [From ZITHROMAX] Allergy Unknown PT UNSURE Verified 12/27/16 10:12 OF REACTION ciprofloxacin [From CIPRO] Allergy Unknown PT UNSURE Verified 12/27/16 10:12 OF REACTION ciprofloxacin HCl Allergy Unknown PT UNSURE Verified 12/27/16 10:12 [From CIPRO] OF REACTION clarithromycin Allergy Unknown PT UNSURE Verified 12/27/16 10:12 [CLARITHROMYCIN] OF REACTION codeine [CODEINE] Allergy Unknown PT UNSURE Verified 12/27/16 10:12 OF REACTION prednisone [PREDNISONE] Allergy Unknown PT Verified 12/27/16 10:12 ALLERGIC TO STEROIDS Sulfa (Sulfonamide Allergy Unknown ANAPHYLAXIS Verified 12/27/16 10:12 Antibiotics) Review of Systems Constitutional: Denies: Chills, Fever, Malaise, Night sweats Eyes: Denies: Eye discharge, Eye pain ENT: Reports: Congestion, Throat pain. Denies: Ear pain, Epistaxis Respiratory: Reports: Cough. Denies: Dyspnea Cardiovascular: Denies: Chest pain, Dyspnea on exertion Endocrine: Denies: Fatigue, Heat or cold intolerance Gastrointestinal: Denies: Abdominal pain, Nausea, Vomiting Genitourinary: Denies: Incontinence, Retention Musculoskeletal: Denies: Arthralgia, Back pain Skin: Denies: Bruising, Change in color Neurological: Denies: Abnormal gait, Confusion, Headache, Seizure Psychiatric: Denies: Anxiety Hematological/Lymphatic: Denies: Anemia, Blood Clots Past Medical History - SOCIAL HISTORY Smoking Status: Former smoker Drug Use: None - RESPIRATORY Hx Respiratory Disorders: Yes Hx Pneumonia: Yes - CARDIOVASCULAR Hx Cardio Disorders: Yes Hx Heart Attack: Yes Hx Hypertension: Yes - NEURO Hx Neuro Disorders: Yes Hx CVA: Yes Hx Headaches: Yes Hx TIA: Yes - GI Hx GI Disorders: Yes Hx Reflux: Yes (was on nexium) - Hx Genitourinary Disorders: No - ENDOCRINE Hx Endocrine Disorders: No Hx Diabetes: No Hx Thyroid Disease: No - MUSCULOSKELETAL Hx Musculoskeletal Disorders: Yes Hx Arthritis: Yes Hx Osteoporosis: Yes - PSYCH Hx Psych Problems: No - HEMATOLOGY/ONCOLOGY Hx Hematology/Oncology Disorders: Yes Hx Cancer: Yes (uterine) Family Medical History Hx Alcohol Use: Father Hx Cancer: Brother/Sister Hx Diabetes: Brother/Sister Hx Heart Disease: Father, Brother/Sister Hx Liver Disease: Father Hx Resp Disorders: Father, Mother, Brother/Sister Physical Exam - General General Appearance: Alert, Oriented x3, Cooperative, No acute distress Limitations: No limitations - Head Head exam: Atraumatic, Normocephalic, Normal inspection Head exam detail: negative: Abrasion, Contusion, Gonzalez's sign, General tenderness, Hematoma, Laceration - Eye Eye exam: Normal appearance. negative: Conjunctival injection, Periorbital swelling, Periorbital tenderness, Scleral icterus - ENT ENT exam: Normal orophraynx, TM's normal bilaterally Ear exam: negative: Auricular hematoma, Auricular trauma Nasal Exam: negative: Active bleeding, Discharge, Dried blood, Foreign body Mouth exam: negative: Drooling, Laceration, Muffled voice, Tongue elevation Throat exam: negative: Tonsillar erythema, Tonsillomegaly, R peritonsillar mass , L peritonsillar mass - Neck Neck exam: Normal inspection. negative: Meningismus, Tenderness - Respiratory Respiratory exam: Normal lung sounds bilaterally. negative: Rales, Respiratory distress, Rhonchi, Stridor - Cardiovascular Cardiovascular Exam: Regular rate, Normal rhythm, Normal heart sounds - GI/Abdominal GI/Abdominal exam: Soft. negative: Rebound, Rigid, Tenderness - Rectal Rectal exam: Deferred - exam: Deferred - Extremities Extremities exam: Normal inspection. negative: Calf tenderness, Pedal edema, Tenderness - Back Back exam: Denies: CVA tenderness (R), CVA tenderness (L) - Neurological Neurological exam: Alert, Normal gait, Oriented X3 - Psychiatric Psychiatric exam: Normal affect, Normal mood - Skin Skin exam: Normal color. negative: Abrasion Type of lesion: negative: abrasion Course Vital Signs 12/10/18 20:05 Temperature 98.3 F Pulse Rate [ 66 Pulse Ox Probe] Respiratory 16 Rate Blood Pressure 125/81 [Left Arm] Pulse Ox 96 - Reevaluation(s) Reevaluation #1: 12/10/18 20:14 Patient was seen and examined No clear bacterial source of infection is identified on examination, patient is currently taking Zithromax as well. History and examination are consistent with viral URI Recommended Claritin-D for her symptoms, denies history of HTN on examination. Patient is well appearing and stable for discharge at this time. Disposition Disposition: Discharge Clinical Impression: URI (upper respiratory infection) Qualifiers: URI type: unspecified URI Qualified Code(s): J06.9 - Acute upper respiratory infection, unspecified Disposition: Home, Self-Care Condition: (2) Stable Instructions: Cold Symptoms (ED) Additional Instructions: Return to ED if your symptoms worsen or if you have any concerns. Claritin as directed. Follow-up with your family doctor in 3-5 days as directed. Prescriptions: Loratadine/Pseudoephedrine [Claritin-D 24 Hour Tablet] 1 tab PO DAILY #15 tab.er Forms: Patient Portal Access Time of Disposition: 20:10 Quality - Quality Measures Quality Measures: N/A - Blood Pressure Screening Does Patient Have Any of the Following: No Blood Pressure Classification: Pre-Hypertensive BP Reading Systolic Measurement: 125 Diastolic Measurement: 81 Screening for High Blood Pressure: < Pre-Hypertensive BP, F/U Documented > [ G8950] Pre-Hypertensive Follow-up Interventions: Referral to alternative/primary care provider.
== END 2018-12-10 20:23 | disposition home or self-care (01) ==
LOC: ER 19:57
DX: J06.9 Acute upper respiratory infection, unspecified (principal); I10 Essential (primary) hypertension; I25.2 Old myocardial infarction; Z87.891 Personal history of nicotine dependence
CPT/HCPCS: 99282

== ENCOUNTER 2019-01-26 08:52 | Emergency (ER) | payer MEDICARE, MEDICAID ==
[2019-01-26] MEDS ORDERED: ACETAMINOPHEN 325 MG TAB PO ONE (09:20)
--- NOTE | 2019-01-26 09:40 | Emergency Department Record ---
History of Present Illness - General Chief complaint: Extremity Problem Stated complaint: RIGHT SIDED PAIN Time Seen by Provider: 01/26/19 09:13 Source: Patient Mode of Arrival: Ambulatory Limitations: No limitations - History of Present Illness Initial comments: The patient is here due to a 3-4 day hx of R sided chest, shoulder, arm and back pain. The patient states she woke up with the pain 4 days ago. It is an intermittent sharp stabbing pain mainly around the R shoulder and back and sometimes in the front of the chest. She states the pain is worse with any twisting, bending, or R shoulder ROM. The patient denies any trauma, injury, fall, fever, cough, pleuritic pain or L sided CP. The patient has a hx of arthritis with similar pain in the past. MD Complaint: Joint pain, Other Onset/Timin -: Days(s) Location: Right, Arm, Shoulder, Other Severity scale (1-10): 5 Quality: Aching, Sharp, Other Consistency: Intermittent Improves with: Rest Worsens with: Exertion Associated Symptoms: Shortness of breath - Related Data Allergies Allergy/AdvReac Type Severity Reaction Status Date / Time tramadol Allergy Severe ITCHING Verified 01/26/19 08:57 amoxicillin trihydrate Allergy Unknown PT UNSURE Verified 01/26/19 08:57 [From AMOXIL] OF REACTION azithromycin [From ZITHROMAX] Allergy Unknown PT UNSURE Verified 01/26/19 08:57 OF REACTION ciprofloxacin [From CIPRO] Allergy Unknown PT UNSURE Verified 01/26/19 08:57 OF REACTION ciprofloxacin HCl Allergy Unknown PT UNSURE Verified 01/26/19 08:57 [From CIPRO] OF REACTION clarithromycin Allergy Unknown PT UNSURE Verified 01/26/19 08:57 [CLARITHROMYCIN] OF REACTION codeine [CODEINE] Allergy Unknown PT UNSURE Verified 01/26/19 08:57 OF REACTION prednisone [PREDNISONE] Allergy Unknown PT Verified 01/26/19 08:57 ALLERGIC TO STEROIDS Sulfa (Sulfonamide Allergy Unknown ANAPHYLAXIS Verified 01/26/19 08:57 Antibiotics) Travel Screening - Travel/Exposure Within Last 30 Days Have you traveled within the last 30 days?: No - Travel/Exposure Within Last Year Have you traveled outside the [place] in the last year?: No - Additonal Travel Details Have you been exposed to anyone with a communicable illness?: No - Travel Symptoms Symptom Screening: None Review of Systems Constitutional: Denies: Chills, Fever Eyes: Denies: Eye discharge ENT: Denies: Congestion Respiratory: Denies: Cough Cardiovascular: Denies: Arrhythmia, Chest pain Endocrine: Denies: Fatigue Gastrointestinal: Denies: Nausea Genitourinary: Denies: Dysuria Musculoskeletal: Reports: Back pain. Denies: Arthralgia Skin: Denies: Bruising Past Medical History - SOCIAL HISTORY Smoking Status: Former smoker Alcohol Use: None Drug Use: None - RESPIRATORY Hx Respiratory Disorders: Yes Hx Pneumonia: Yes - CARDIOVASCULAR Hx Cardio Disorders: Yes Hx Heart Attack: Yes Hx Hypertension: Yes - NEURO Hx Neuro Disorders: Yes Hx CVA: Yes Hx Headaches: Yes Hx TIA: Yes - GI Hx GI Disorders: Yes Hx Reflux: Yes (was on nexium) - Hx Genitourinary Disorders: No - ENDOCRINE Hx Endocrine Disorders: No Hx Diabetes: No Hx Thyroid Disease: No - MUSCULOSKELETAL Hx Musculoskeletal Disorders: Yes Hx Arthritis: Yes Hx Osteoporosis: Yes - PSYCH Hx Psych Problems: No - HEMATOLOGY/ONCOLOGY Hx Hematology/Oncology Disorders: Yes Hx Cancer: Yes (uterine) Family Medical History Any Significant Family History?: Yes Hx Alcohol Use: Father Hx Cancer: Brother/Sister Hx Diabetes: Brother/Sister Hx Heart Disease: Father, Brother/Sister Hx Liver Disease: Father Hx Resp Disorders: Father, Mother, Brother/Sister Physical Exam - General General Appearance: Alert, Oriented x3, Cooperative, No acute distress - Head Head exam: Atraumatic, Normocephalic, Normal inspection - Eye Eye exam: Normal appearance, PERRL, EOMI - ENT Throat exam: Normal inspection. negative: Tonsillar erythema, Tonsillar exudate - Neck Neck exam: Normal inspection, Full ROM. negative: Lymphadenopathy, Tenderness - Respiratory Respiratory exam: Normal lung sounds bilaterally, Chest wall tenderness (The R sided CP is 100% reproducible to palpation.). negative: Respiratory distress - Cardiovascular Cardiovascular Exam: Regular rate, Normal rhythm, Normal heart sounds - GI/Abdominal GI/Abdominal exam: Soft, Normal bowel sounds. negative: Tenderness - Extremities Extremities exam: Normal inspection, Full ROM, Normal capillary refill. negative: Tenderness Image of Full Body: 1 - Area of pain and tenderness. 2 - Area of pain and tenderness. - Back Back exam: Reports: Normal inspection, Paraspinal tenderness (The R back pain is very reproducible to palpation.). Denies: Vertebral tenderness - Neurological Neurological exam: Alert, Normal gait. negative: Abnormal gait, Motor sensory deficit Course Vital Signs 01/26/19 09:03 Temperature 98 F Pulse Rate 69 Respiratory 20 Rate Blood Pressure 144/76 Pulse Ox 96 - Reevaluation(s) Reevaluation #1: The patient is doing a lot better at this time. The Tylenol has improved the pain and now she only has pain with movement of her R shoulder. I did discuss the need for F/U with her PCP. 01/26/19 10:27 Medical Decision Making - Data Complexity MDM Data: Labs Ordered and/or Reviewed, X-Ray Ordered and/or Reviewed, EKG Ordered and/or Reviewed - Lab Data Result diagrams: 01/26/19 09:35 01/26/19 09:35 - EKG Data -: EKG Interpreted by [place] EKG: No Acute Changes, Unchanged From Previous - Radiology Data Radiology results: Report reviewed (CXR: Neg per Rad.) Disposition Disposition: Discharge Clinical Impression: Osteoarthritis Qualifiers: Osteoarthritis location: unspecified site Osteoarthritis type: unspecified Qualified Code(s): M19.90 - Unspecified osteoarthritis, unspecified site Disposition: Home, Self-Care Condition: (2) Stable Instructions: Osteoarthritis (ED) Additional Instructions: Please take Tylenol for pain and see your family doctor early next week for recheck. Return to the ER for any worsening symptoms. Forms: Patient Portal Access Time of Disposition: 10:15 Quality - Quality Measures Quality Measures: Blunt Head Trauma (>2yr) - Blunt Head Trauma - Adult Quality Measure: Measure #415: Utilization of CT for Minor Blunt Head Trauma ICD10 Codes Entered: Yes View Details: Yes Was CT ordered: No [place] Score: Please complete [place] Coma Scale above Utilization of CT for Minor Blunt Head Trauma: Not Eligible For Measure Additional Inclusion Criteria: More than 24hrs (OR) GCS not 15 (OR) CT not ordered. Not Eligible Reason: CT Not Ordered - Blood Pressure Screening View Details: Yes Does Patient Have Any of the Following: No Blood Pressure Classification: Hypertensive Reading Systolic Measurement: 144 Diastolic Measurement: 76 Screening for High Blood Pressure: < First Hypertensive BP, F/U Documented > [ G8950] First Hypertensive Follow-up Interventions: Referral to alternative/primary care provider.
[2019-01-26 09:43] LABS: BASO % 0.4 % (0-6); EOS % 3.8 % (0-6); GRAN % 67.6 % (47-80); HEMATOCRIT 41.2 % (35.0-47.0); LYMPH % 19.2 % (16-45); MEAN CELL VOLUME 92.4 fl (81-97); MEAN CORPUSCULAR HEMOGLOBIN 31.4 pg (27-33); MEAN PLATELET VOLUME 9.2 fl (7.4-10.4); PLATELET COUNT 260 K/uL (130-400); RED BLOOD COUNT 4.46 M/uL (3.80-5.40); RED CELL DISTRIBUTION WIDTH 12.3 % (11.5-14.5); WHITE BLOOD COUNT W/O DIFF 7.1 K/uL (4.2-12.2)
[2019-01-26 09:53] LABS: BLOOD UREA NITROGEN 12 mg/dL (8-23); CREATININE 0.5 mg/dL (0.5-0.9); EST GLOMERULAR FILTRATION RATE > 60 mL/min; TOTAL PROTEIN 7.4 g/dL (6.6-8.7)
[2019-01-26 09:55] LABS: GLUCOSE,RANDOM 115 mg/dL (74-109)
[2019-01-26 09:58] LABS: ALB/GLOB RATIO 1.2 (1.1-1.8); ALKALINE PHOSPHATASE 86 U/L (35-104); ALT/SGPT 17 U/L (<33); AST/SGOT 20 U/L (10.0-35.0); CREATINE PHOSPHOKINASE 32 U/L (26-192)
[2019-01-26 10:04] LABS: CKMB 1.4 ng/mL (<3.77)
--- NOTE | 2019-01-27 12:49 | RADIOLOGY REPORT ---
EXAM: CHEST, TWO VIEWS HISTORY: COUGH, MALAISE. TECHNIQUE: Two views of the chest were obtained. Comparison: Chest radiograph 12/27/16. FINDINGS: The cardiac silhouette is within normal size limits. The thoracic aorta is calcified. No focal consolidation, pleural effusion or pneumothorax. Degenerative changes are noted in both shoulders. IMPRESSION: NO ACUTE LUNG FINDINGS. JOB NUMBER: [id number] MTDD
== END 2019-01-26 10:28 | disposition home or self-care (01) ==
LOC: ER 08:52
DX: M19.011 Primary osteoarthritis, right shoulder (principal); M47.894 Other spondylosis, thoracic region; R07.89 Other chest pain; R06.02 Shortness of breath; I10 Essential (primary) hypertension; I25.2 Old myocardial infarction; F17.210 Nicotine dependence, cigarettes, uncomplicated
CPT/HCPCS: 71046; 80048; 80053; 82550; 82553; 84484; 85025; 93005; 93010; 99284

== ENCOUNTER 2019-07-19 09:04 | Emergency (ER) | payer MEDICARE, MEDICAID ==
[2019-07-19] MEDS ORDERED: NITROGLYCERIN 0.4MG SL TABLET #25 BTL SL PRN (09:13)
[2019-07-19] MEDS ORDERED: ASPIRIN 81 MG CHEWABLE TABLET PO ONE (09:13)
[2019-07-19] MEDS ORDERED: 0.9 % SODIUM CHLORIDE 1000ML 1,000 ML IV ONE (09:13)
--- NOTE | 2019-07-19 09:35 | Emergency Department Record ---
History of Present Illness - General Chief Complaint: Chest Pain Stated Complaint: CHEST PAIN Time Seen by Provider: 07/19/19 09:12 Source: Patient, RN notes reviewed Mode of Arrival: Wheelchair - History of Present Illness Initial Comments: patient had a sharp chest pain under the left breast which lasted for a few seconds and is gone now and was reproducible to palpation in the left chest area and in the epigastric area of abd. She also has left shoulder pain which hurts with motion and palpation. Patient also has a sore throat and sinus congestion and cough MD Complaint: Chest pain Onset/Timin -: Week(s) Pain Location: Left chest Pain Radiation: LUE Severity scale (1-10): 2 Quality: Heaviness Consistency: Constant Improves With: Nothing Worsens With: Movement Treatments Prior to Arrival: None - Related Data Home Medications Medication Instructions Recorded Confirmed Last Taken Lisinopril/Hydrochlorothiazide 1 tab PO DAILY 07/19/19 07/19/19 07/19/19 [Zestoretic 20-12.5 mg Tablet] Previous Rx's Medication Instructions Recorded Azithromycin 250 mg PO DAILY #6 tablet 07/19/19 Allergies Allergy/AdvReac Type Severity Reaction Status Date / Time tramadol Allergy Severe ITCHING Verified 06/16/19 18:35 amoxicillin trihydrate Allergy Unknown PT UNSURE Verified 06/16/19 18:35 [From AMOXIL] OF REACTION azithromycin [From ZITHROMAX] Allergy Unknown PT UNSURE Verified 06/16/19 18:35 OF REACTION ciprofloxacin [From CIPRO] Allergy Unknown PT UNSURE Verified 06/16/19 18:35 OF REACTION ciprofloxacin HCl Allergy Unknown PT UNSURE Verified 06/16/19 18:35 [From CIPRO] OF REACTION clarithromycin Allergy Unknown PT UNSURE Verified 06/16/19 18:35 [CLARITHROMYCIN] OF REACTION codeine [CODEINE] Allergy Unknown PT UNSURE Verified 06/16/19 18:35 OF REACTION prednisone [PREDNISONE] Allergy Unknown PT Verified 06/16/19 18:35 ALLERGIC TO STEROIDS Sulfa (Sulfonamide Allergy Unknown ANAPHYLAXIS Verified 06/16/19 18:35 Antibiotics) Travel Screening - Travel/Exposure Within Last 30 Days Have you traveled within the last 30 days?: No - Travel/Exposure Within Last Year Have you traveled outside the [place] in the last year?: No - Additonal Travel Details Have you been exposed to anyone with a communicable illness?: No - Travel Symptoms Symptom Screening: None Review of Systems Reviewed: No additional complaints except as noted below Constitutional: Reports: As per HPI. Denies: Chills, Fever, Malaise, Night sweats, Weakness, Weight change Eyes: Reports: As per HPI. Denies: Eye discharge, Eye pain, Photophobia, Vision change ENT: Reports: As per HPI, Congestion, Throat pain. Denies: Dental pain, Ear pain, Epistaxis, Hearing loss Respiratory: Reports: As per HPI, Cough. Denies: Dyspnea, Hemoptysis, Stridor, Wheezes Cardiovascular: Reports: As per HPI, Chest pain. Denies: Arrhythmia, Dyspnea on exertion, Edema, Murmurs, Orthopnea, Palpitations, Paroxysmal nocturnal dyspnea, Rheumatic Fever, Syncope Endocrine: Reports: As per HPI. Denies: Fatigue, Heat or cold intolerance, Polydipsia, Polyuria Gastrointestinal: Reports: As per HPI. Denies: Abdominal pain, Constipation, Diarrhea, Hematemesis, Hematochezia, Melena, Nausea, Vomiting Genitourinary: Reports: As per HPI. Denies: Abnormal menses, Discharge, Dyspareunia, Dysuria, Frequency, Hematuria, Incontinence, Retention, Urgency Musculoskeletal: Reports: As per HPI, Arthralgia. Denies: Back pain, Gout, Joint swelling, Myalgia, Neck pain Skin: Reports: As per HPI. Denies: Bruising, Change in color, Change in hair/nails, Lesions, Pruritus, Rash Neurological: Reports: As per HPI. Denies: Abnormal gait, Confusion, Headache, Numbness, Paresthesias, Seizure, Tingling, Tremors, Vertigo, Weakness Psychiatric: Reports: As per HPI. Denies: Anxiety, Auditory hallucinations, Depression, Homicidal thoughts, Suicidal thoughts, Visual hallucinations Hematological/Lymphatic: Reports: As per HPI. Denies: Anemia, Blood Clots, Easy bleeding, Easy bruising, Swollen glands Past Medical History - SOCIAL HISTORY Smoking Status: Former smoker Alcohol Use: None Drug Use: None - RESPIRATORY Hx Respiratory Disorders: Yes Hx Pneumonia: Yes - CARDIOVASCULAR Hx Cardio Disorders: Yes Hx Heart Attack: Yes Hx Hypertension: Yes - NEURO Hx Neuro Disorders: Yes Hx CVA: Yes Hx Headaches: Yes Hx TIA: Yes - GI Hx GI Disorders: Yes Hx Reflux: Yes (was on nexium) - Hx Genitourinary Disorders: No - ENDOCRINE Hx Endocrine Disorders: No Hx Diabetes: No Hx Thyroid Disease: No - MUSCULOSKELETAL Hx Musculoskeletal Disorders: Yes Hx Arthritis: Yes Hx Osteoporosis: Yes - PSYCH Hx Psych Problems: No - HEMATOLOGY/ONCOLOGY Hx Hematology/Oncology Disorders: Yes Hx Cancer: Yes (uterine) Family Medical History Any Significant Family History?: Yes Hx Alcohol Use: Father Hx Cancer: Brother/Sister Hx Diabetes: Brother/Sister Hx Heart Disease: Father, Brother/Sister Hx Liver Disease: Father Hx Resp Disorders: Father, Mother, Brother/Sister Physical Exam - General General Appearance: Alert, Oriented x3, Cooperative, No acute distress - Head Head exam: Normal inspection - Eye Eye exam: Normal appearance, PERRL Pupils: Normal accommodation - ENT ENT exam: Normal exam, Mucous membranes moist, Normal external ear exam, Normal orophraynx, TM's normal bilaterally Ear exam: Normal external inspection. negative: External canal tenderness Nasal Exam: Normal inspection. negative: Discharge, Sinus tenderness Mouth exam: Normal external inspection, Tongue normal Teeth exam: Normal inspection. negative: Dental caries Throat exam: Normal inspection. negative: Tonsillar erythema, Tonsillar exudate - Neck Neck exam: Normal inspection, Full ROM. negative: Tenderness - Respiratory Respiratory exam: Normal lung sounds bilaterally. negative: Respiratory distress - Cardiovascular Cardiovascular Exam: Regular rate, Normal rhythm, Normal heart sounds, Other (pain reproducible on palpation left chest and with moving her shoulder) - GI/Abdominal GI/Abdominal exam: Soft, Normal bowel sounds. negative: Tenderness - Rectal Rectal exam: Deferred - exam: Deferred - Extremities Extremities exam: Normal inspection, Full ROM, Normal capillary refill. negative: Tenderness - Back Back exam: Reports: Normal inspection, Full ROM. Denies: Muscle spasm, Rash noted, Tenderness - Neurological Neurological exam: Alert, Normal gait, Oriented X3, Reflexes normal - Psychiatric Psychiatric exam: Normal affect, Normal mood - Skin Skin exam: Dry, Intact, Normal color, Warm Course Vital Signs 07/19/19 09:21 Temperature 98 F Pulse Rate 60 Respiratory 20 Rate Blood Pressure 123/66 Pulse Ox 95 Medical Decision Making - Lab Data Result diagrams: 07/19/19 09:20 07/19/19 09:20 Disposition Clinical Impression: Chest wall syndrome, Bronchitis Chest pain Qualifiers: Chest pain type: unspecified Qualified Code(s): R07.9 - Chest pain, unspecified Disposition: Home, Self-Care Condition: (1) Good Instructions: Costochondritis (ED), Acute Bronchitis (ED) Additional Instructions: follow up with Dr Porter in 2-5 days tylenol for pain Prescriptions: Azithromycin 250 mg PO DAILY #6 tablet Forms: Patient Portal Access Time of Disposition: 11:56 Quality - Quality Measures Quality Measures: N/A - Blood Pressure Screening Does Patient Have Any of the Following: No, Active Dx of HTN Blood Pressure Classification: Pre-Hypertensive BP Reading Systolic Measurement: 123 Diastolic Measurement: 66 Screening for High Blood Pressure: Patient Exclusion, Hx of HTN [G9744]
[2019-07-19] MEDS ORDERED: AL HYDROX/MAG HYDROX 30ML UD PO ONE (09:43)
[2019-07-19 09:45] LABS: ABSOLUTE NEUTROPHIL COUNT 5.79; BASO % 0.5 % (0-6); EOS % 2.8 % (0-6); GRAN % 69.2 % (47-80); HEMOGLOBIN 13.8 gm/dl (11.6-16.0); LYMPH % 19.1 % (16-45); MEAN CORPUSCULAR HEMOGLOBIN 31.7 pg (27-33); MEAN CORPUSCULAR HGB CONC 34.5 g/dl (32-36); MEAN PLATELET VOLUME 9.5 fl (7.4-10.4); MONO % 8.4 % (0-9); PLATELET COUNT 291 K/uL (130-400); RED BLOOD COUNT 4.35 M/uL (3.80-5.40); RED CELL DISTRIBUTION WIDTH 12.2 % (11.5-14.5); WHITE BLOOD COUNT W/O DIFF 8.4 K/uL (4.2-12.2)
[2019-07-19 09:54] LABS: BLOOD UREA NITROGEN 13 mg/dL (8-23); CREATININE 0.5 mg/dL (0.5-0.9); EST GLOMERULAR FILTRATION RATE > 60 mL/min
[2019-07-19 09:57] LABS: GLUCOSE,RANDOM 112 mg/dL (74-109)
--- NOTE | 2019-07-21 08:43 | RADIOLOGY REPORT ---
EXAM: CHEST, TWO VIEWS HISTORY: PATIENT HAS CHEST PAIN. TECHNIQUE: Two views of the chest are provided along with the comparison chest x-ray dated 01/26/19. FINDINGS: The cardiomediastinal silhouette is within normal limits for size and contour. The jose cruz appear unremarkable. Chronic interstitial changes are identified bilaterally. There is no radiographic evidence of a focal infiltrate, pleural effusion, or pneumothorax. Multilevel degenerative disk disease of the thoracic spine is identified. Osteoarthritic changes of the bilateral shoulders are noted. IMPRESSION: STABLE RADIOGRAPHIC APPEARANCE OF THE CHEST WITH RESPECT TO THE PRIOR EXAMINATION. JOB NUMBER: [id number] [facility]
== END 2019-07-19 12:41 | disposition home or self-care (01) ==
LOC: ER 09:04
DX: M94.0 Chondrocostal junction syndrome [Tietze] (principal); J20.9 Acute bronchitis, unspecified; R07.1 Chest pain on breathing
CPT/HCPCS: 71046; 80048; 84484; 85025; 85730; 87880; 93005; 93010; 99284

== ENCOUNTER 2019-07-28 19:04 | Emergency (ER) | payer MEDICARE, MEDICAID ==
--- NOTE | 2019-07-28 19:17 | Emergency Department Record ---
History of Present Illness - General Chief complaint: ENT Stated complaint: SOMETHING STUCK IN THROAT Time Seen by Provider: 07/28/19 19:07 Source: Patient Mode of Arrival: Ambulatory Limitations: No limitations - History of Present Illness Initial comments: 78 yo female presents to ED for evaluation of pain with swallowing that began this morning. Patient reports that she was drinking a bottle of water, believes there may have been something in the water that she swallowed caused it to be lodged in the lower esophagus. Patient has been eating, drinking, and swallowing her secretions without difficulty throughout the day. MD complaint: Difficulty swallowing Onset/Timin -: Days(s) Severity: Mild Consistency: Intermittent Improves with: None Worsens with: Swallowing - Related Data Home Medications Medication Instructions Recorded Confirmed Last Taken Prednisone [Prednisone 20Mg] 20 mg PO BID 07/28/19 07/28/19 Unknown Previous Rx's Medication Instructions Recorded Azithromycin 250 mg PO DAILY #6 tablet 07/19/19 Allergies Allergy/AdvReac Type Severity Reaction Status Date / Time tramadol Allergy Severe ITCHING Verified 07/28/19 19:18 amoxicillin trihydrate Allergy Unknown PT UNSURE Verified 07/28/19 19:18 [From AMOXIL] OF REACTION azithromycin [From ZITHROMAX] Allergy Unknown PT UNSURE Verified 07/28/19 19:18 OF REACTION ciprofloxacin [From CIPRO] Allergy Unknown PT UNSURE Verified 07/28/19 19:18 OF REACTION ciprofloxacin HCl Allergy Unknown PT UNSURE Verified 07/28/19 19:18 [From CIPRO] OF REACTION clarithromycin Allergy Unknown PT UNSURE Verified 07/28/19 19:18 [CLARITHROMYCIN] OF REACTION codeine [CODEINE] Allergy Unknown PT UNSURE Verified 07/28/19 19:18 OF REACTION prednisone [PREDNISONE] Allergy Unknown PT Verified 07/28/19 19:18 ALLERGIC TO STEROIDS Sulfa (Sulfonamide Allergy Unknown ANAPHYLAXIS Verified 07/28/19 19:18 Antibiotics) Review of Systems Constitutional: Denies: Chills, Fever, Malaise, Night sweats Eyes: Denies: Eye discharge, Eye pain ENT: Reports: Throat pain. Denies: Congestion, Ear pain, Epistaxis Respiratory: Denies: Cough, Dyspnea Cardiovascular: Denies: Chest pain, Dyspnea on exertion Endocrine: Denies: Fatigue, Heat or cold intolerance Gastrointestinal: Denies: Abdominal pain, Nausea, Vomiting Genitourinary: Denies: Incontinence, Retention Musculoskeletal: Denies: Arthralgia, Back pain Skin: Denies: Bruising, Change in color Neurological: Denies: Abnormal gait, Confusion, Headache, Tingling, Tremors Psychiatric: Denies: Anxiety Hematological/Lymphatic: Denies: Anemia, Blood Clots Past Medical History - SOCIAL HISTORY Smoking Status: Former smoker Drug Use: None - RESPIRATORY Hx Respiratory Disorders: Yes Hx Pneumonia: Yes - CARDIOVASCULAR Hx Cardio Disorders: Yes Hx Heart Attack: Yes Hx Hypertension: Yes - NEURO Hx Neuro Disorders: Yes Hx CVA: Yes Hx Headaches: Yes Hx TIA: Yes - GI Hx GI Disorders: Yes Hx Reflux: Yes (was on nexium) - Hx Genitourinary Disorders: No - ENDOCRINE Hx Endocrine Disorders: No Hx Diabetes: No Hx Thyroid Disease: No - MUSCULOSKELETAL Hx Musculoskeletal Disorders: Yes Hx Arthritis: Yes Hx Osteoporosis: Yes - PSYCH Hx Psych Problems: No - HEMATOLOGY/ONCOLOGY Hx Hematology/Oncology Disorders: Yes Hx Cancer: Yes (uterine) Family Medical History Hx Alcohol Use: Father Hx Cancer: Brother/Sister Hx Diabetes: Brother/Sister Hx Heart Disease: Father, Brother/Sister Hx Liver Disease: Father Hx Resp Disorders: Father, Mother, Brother/Sister Physical Exam - General General Appearance: Alert, Oriented x3, Cooperative, No acute distress, Other (No respiratory distress noted, handling secretions normally on examination) Limitations: No limitations - Head Head exam: Atraumatic, Normocephalic, Normal inspection Head exam detail: negative: Abrasion, Contusion, Gonzalez's sign, General tenderness, Hematoma, Laceration - Eye Eye exam: Normal appearance. negative: Conjunctival injection, Periorbital swelling, Periorbital tenderness, Scleral icterus - ENT Ear exam: negative: Auricular hematoma, Auricular trauma Nasal Exam: negative: Active bleeding, Discharge, Dried blood, Foreign body Mouth exam: negative: Drooling, Laceration, Muffled voice, Tongue elevation Throat exam: negative: Tonsillar erythema, Tonsillomegaly, R peritonsillar mass, L peritonsillar mass - Neck Neck exam: Normal inspection. negative: Meningismus, Tenderness - Respiratory Respiratory exam: Normal lung sounds bilaterally. negative: Respiratory distress, Rhonchi, Stridor, Wheezes - Cardiovascular Cardiovascular Exam: Regular rate, Normal rhythm, Normal heart sounds - GI/Abdominal GI/Abdominal exam: Soft. negative: Distended, Rebound, Rigid, Tenderness - Rectal Rectal exam: Deferred - exam: Deferred - Extremities Extremities exam: Normal inspection. negative: Pedal edema, Tenderness - Back Back exam: Denies: CVA tenderness (R), CVA tenderness (L) - Neurological Neurological exam: Alert, Normal gait, Oriented X3 - Psychiatric Psychiatric exam: Normal affect, Normal mood - Skin Skin exam: Normal color. negative: Abrasion Type of lesion: negative: abrasion Course Vital Signs 07/28/19 19:12 Temperature 98.2 F Pulse Rate [ 64 Pulse Ox Probe] Respiratory 24 Rate Blood Pressure 121/60 [Left Arm] Pulse Ox 95 - Reevaluation(s) Reevaluation #1: 07/28/19 19:39 Soft-tissue neck: No acute abnormality Patient was reassessed and updated on her radiograph result. Patient is drinking water easily without evidence for esophageal obstruction, no evidence for aspiration on examination. Patient appears stable for discharge at this time with instructions to follow-up with her PCP in 1-3 days as directed. Disposition Disposition: Discharge Clinical Impression: Dysphagia Qualifiers: Dysphagia type: esophageal phase Qualified Code(s): R13.10 - Dysphagia, unspecified Disposition: Home, Self-Care Condition: (2) Stable Instructions: Dysphagia (ED) Additional Instructions: Return to ED if your symptoms worsen or if you have any concerns. Follow-up with your family doctor in 3-5 days as directed. Forms: Patient Portal Access Time of Disposition: 19:41 Quality - Quality Measures Quality Measures: N/A - Blood Pressure Screening Does Patient Have Any of the Following: No Blood Pressure Classification: Pre-Hypertensive BP Reading Systolic Measurement: 121 Diastolic Measurement: 60 Screening for High Blood Pressure: < Pre-Hypertensive BP, F/U Documented > [G8950] Pre-Hypertensive Follow-up Interventions: Referral to alternative/primary care provider.
--- NOTE | 2019-07-29 21:17 | RADIOLOGY REPORT ---
EXAM: NECK, SOFT TISSUE HISTORY: THROAT PAIN. TECHNIQUE: AP and lateral views of the neck for purposes of soft tissue evaluation. COMPARISON: No prior soft tissue neck or cervical spine series. FINDINGS: There is narrowing particularly of the fourth through the sixth cervical interspaces with associated prominent hypertrophic spurring. Advanced degenerative change at the odontoid-anterior arch of C1 articulation. Advanced multilevel facet joint arthropathy. Epiglottis appears of normal size. No distention of the hypopharynx. In fact, the hypopharynx is largely void of air and not well demonstrated on the plain films. No narrowing of the subglottic airway evident. No obvious foreign body seen, although some foreign bodies will be radiographically indistinguishable from the adjacent soft tissues. The patient is noted to be edentulous. IMPRESSION: 1. EXTENSIVE DIFFUSE DEGENERATIVE CHANGES IN THE CERVICAL SPINE. 2. HYPOPHARYNX RELATIVELY VOID OF AIR WITH RESULTING POOR VISUALIZATION OF THE HYPOPHARYNX. HOWEVER, THE EPIGLOTTIS APPEARS OF NORMAL SIZE. JOB NUMBER: [id number] [facility]
== END 2019-07-28 20:51 | disposition home or self-care (01) ==
LOC: ER 19:04
DX: R13.10 Dysphagia, unspecified (principal); R07.0 Pain in throat; Z87.891 Personal history of nicotine dependence; I10 Essential (primary) hypertension; I25.2 Old myocardial infarction
CPT/HCPCS: 70360; 99283

== ENCOUNTER 2019-10-05 14:18 | Emergency (ER) | payer MEDICARE, MEDICAID ==
--- NOTE | 2019-10-05 14:37 | Emergency Department Record ---
History of Present Illness - General Chief complaint: Weakness Stated complaint: WEAK AND DEHYDRATED Time Seen by Provider: 10/05/19 14:31 Source: Patient Mode of Arrival: Ambulatory Limitations: No limitations - History of Present Illness Initial comments: The patient is here due to generalized weakness for one day with loose watery stools. She does have some nausea off and on and did vomit a small amount yesterday but none today. There has been no BOJORQUEZ, CP, SOB, DAJA, seating, AP, back pain or dysuria. The patient [place] [facility] [place] due to pneumonia and has not felt well since. MD Complaint: Generalized weakness, Lack of energy Onset/Timin -: Days(s) Location: Generalized Improves with: None Worsens with: None Associated Symptoms: Nausea/vomiting - Related Data Allergies Allergy/AdvReac Type Severity Reaction Status Date / Time tramadol Allergy Severe ITCHING Verified 07/28/19 19:18 amoxicillin trihydrate Allergy Unknown PT UNSURE Verified 07/28/19 19:18 [From AMOXIL] OF REACTION azithromycin [From ZITHROMAX] Allergy Unknown PT UNSURE Verified 07/28/19 19:18 OF REACTION ciprofloxacin [From CIPRO] Allergy Unknown PT UNSURE Verified 07/28/19 19:18 OF REACTION ciprofloxacin HCl Allergy Unknown PT UNSURE Verified 07/28/19 19:18 [From CIPRO] OF REACTION clarithromycin Allergy Unknown PT UNSURE Verified 07/28/19 19:18 [CLARITHROMYCIN] OF REACTION codeine [CODEINE] Allergy Unknown PT UNSURE Verified 07/28/19 19:18 OF REACTION prednisone [PREDNISONE] Allergy Unknown PT Verified 07/28/19 19:18 ALLERGIC TO STEROIDS Sulfa (Sulfonamide Allergy Unknown ANAPHYLAXIS Verified 07/28/19 19:18 Antibiotics) Travel Screening - Travel/Exposure Within Last 30 Days Have you traveled within the last 30 days?: No Review of Systems Constitutional: Reports: Malaise. Denies: Chills, Fever Eyes: Denies: Eye discharge ENT: Denies: Congestion Respiratory: Denies: Cough, Dyspnea Cardiovascular: Denies: Chest pain Endocrine: Reports: Fatigue Gastrointestinal: Reports: Diarrhea, Nausea Genitourinary: Denies: Dysuria Musculoskeletal: Denies: Arthralgia Skin: Denies: Bruising Past Medical History - SOCIAL HISTORY Smoking Status: Former smoker Alcohol Use: None Drug Use: None - RESPIRATORY Hx Respiratory Disorders: Yes Hx Pneumonia: Yes - CARDIOVASCULAR Hx Cardio Disorders: Yes Hx Heart Attack: Yes Hx Hypertension: Yes - NEURO Hx Neuro Disorders: Yes Hx CVA: Yes Hx Headaches: Yes Hx TIA: Yes - GI Hx GI Disorders: Yes Hx Reflux: Yes (was on nexium) - Hx Genitourinary Disorders: No - ENDOCRINE Hx Endocrine Disorders: No Hx Diabetes: No Hx Thyroid Disease: No - MUSCULOSKELETAL Hx Musculoskeletal Disorders: Yes Hx Arthritis: Yes Hx Osteoporosis: Yes - PSYCH Hx Psych Problems: No - HEMATOLOGY/ONCOLOGY Hx Hematology/Oncology Disorders: Yes Hx Cancer: Yes (uterine) Family Medical History Any Significant Family History?: Yes Hx Alcohol Use: Father Hx Cancer: Brother/Sister Hx Diabetes: Brother/Sister Hx Heart Disease: Father, Brother/Sister Hx Liver Disease: Father Hx Resp Disorders: Father, Mother, Brother/Sister Physical Exam - General General Appearance: Alert, Oriented x3, Cooperative, No acute distress - Head Head exam: Atraumatic, Normocephalic, Normal inspection - Eye Eye exam: Normal appearance, PERRL - ENT Throat exam: Normal inspection. negative: Tonsillar erythema, Tonsillar exudate - Neck Neck exam: Normal inspection, Full ROM. negative: Tenderness - Respiratory Respiratory exam: Normal lung sounds bilaterally. negative: Respiratory distress - Cardiovascular Cardiovascular Exam: Regular rate, Normal rhythm, Normal heart sounds - GI/Abdominal GI/Abdominal exam: Soft, Normal bowel sounds. negative: Rebound, Rigid, Tenderness - Extremities Extremities exam: Normal inspection, Full ROM, Normal capillary refill. negative: Tenderness - Neurological Neurological exam: Alert, Normal gait. negative: Abnormal gait, Motor sensory deficit - Psychiatric Psychiatric exam: negative: Anxious Course Vital Signs 10/05/19 14:26 Temperature 97.4 F L Pulse Rate 68 Respiratory 18 Rate Blood Pressure 110/57 Pulse Ox 93 L - Reevaluation(s) Reevaluation #1: The patient is doing a lot better at this time. She is drinking water without difficulty. I did discuss the lab results with the patient and the need for follow up with her PCP next week. 10/05/19 15:51 Medical Decision Making - Data Complexity MDM Data: Labs Ordered and/or Reviewed - Lab Data Result diagrams: 10/05/19 14:50 10/05/19 14:50 Disposition Disposition: Discharge Clinical Impression: Weakness Disposition: Home, Self-Care Condition: (2) Stable Instructions: Weakness (ED) Additional Instructions: Please drink plenty of fluids and see your doctor for recheck next week. Return to the ER for any worsening symptoms. Forms: Patient Portal Access Time of Disposition: 15:52 Quality - Quality Measures Quality Measures: Blunt Head Trauma (>2yr) - Blunt Head Trauma - Adult Quality Measure: Measure #415: Utilization of CT for Minor Blunt Head Trauma ICD10 Codes Entered: Yes View Details: Yes Was CT ordered: No Caty Score: Please complete [place] Coma Scale above Utilization of CT for Minor Blunt Head Trauma: Not Eligible For Measure Additional Inclusion Criteria: More than 24hrs (OR) GCS not 15 (OR) CT not ordered. Not Eligible Reason: CT Not Ordered - Blood Pressure Screening View Details: Yes Does Patient Have Any of the Following: No Blood Pressure Classification: Normal BP Reading Systolic Measurement: 110 Diastolic Measurement: 57 Screening for High Blood Pressure: < Normal BP, F/U Not Required > [G8783]
[2019-10-05] MEDS: SUCRALFATE 1 G/10 ML UD PO ONE (14:49)
[2019-10-05] MEDS: 0.9 % SODIUM CHLORIDE 1,000 ML BAG IV ONE (14:52)
[2019-10-05] MEDS: ONDANSETRON HCL IV 4 MG/2 ML VIAL IVP ONE (14:52)
[2019-10-05 15:04] LABS: ABSOLUTE NEUTROPHIL COUNT 6.69; BASO % 0.5 % (0-6); EOS % 1.1 % (0-6); GRAN % 75.4 % (47-80); HEMATOCRIT 40.7 % (35.0-47.0); HEMOGLOBIN 13.7 gm/dl (11.6-16.0); LYMPH % 13.9 % (16-45); MEAN CORPUSCULAR HEMOGLOBIN 31.6 pg (27-33); MEAN CORPUSCULAR HGB CONC 33.7 g/dl (32-36); MEAN PLATELET VOLUME 9.4 fl (7.4-10.4); MONO % 9.1 % (0-9); PLATELET COUNT 320 K/uL (130-400); RED BLOOD COUNT 4.33 M/uL (3.80-5.40); RED CELL DISTRIBUTION WIDTH 13.3 % (11.5-14.5); WHITE BLOOD COUNT W/O DIFF 8.9 K/uL (4.2-12.2)
[2019-10-05 15:16] LABS: BLOOD UREA NITROGEN 13 mg/dL (8-23); CREATININE 0.6 mg/dL (0.5-0.9); EST GLOMERULAR FILTRATION RATE > 60 mL/min; TOTAL PROTEIN 6.5 g/dL (6.6-8.7)
[2019-10-05 15:17] LABS: LIPASE 12 U/L (13-60)
[2019-10-05 15:18] LABS: GLUCOSE,RANDOM 133 mg/dL (74-109)
[2019-10-05 15:21] LABS: ALBUMIN 3.6 g/dL (4.0-5.0); ALKALINE PHOSPHATASE 77 U/L (35-104); ALT/SGPT 18 U/L (<33); AST/SGOT 27 U/L (10.0-35.0); BILIRUBIN,DIRECT 0.2 mg/dL (0-0.3)
[2019-10-05] MEDS: POTASSIUM CHLORIDE 20 MEQ TABLET PO ONE (15:41)
[2019-10-06] MEDS ORDERED: POTASSIUM CHLORIDE 20 MEQ TABLET PO SCH (10:00)
== END 2019-10-05 16:28 | disposition home or self-care (01) ==
LOC: ER 14:18
DX: R11.2 Nausea with vomiting, unspecified (principal); R19.7 Diarrhea, unspecified; I10 Essential (primary) hypertension; Z87.891 Personal history of nicotine dependence
CPT/HCPCS: 80048; 80076; 83690; 85025; 86140; 96374; 99284; J2405; J7030